=== PATIENT | male | born 1955 | race Native Hawaiian/Other Pacific Islander ===

== ENCOUNTER 2018-10-03 10:24 | Outpatient (CLI) | payer OTHER | END 2018-10-03 23:26 | disposition home or self-care (01) | LOC: LABW 10:24 | DX: Z51.81 Encounter for therapeutic drug level monitoring (principal) | CPT/HCPCS: 36415; 80164 ==

== ENCOUNTER 2021-08-01 15:36 | Inpatient (IN) | payer OTHER ==
[~2021-08-01] VITALS: Ht 185.4 cm; Wt 87.6 kg
[2021-08-01 19:13] VITALS: BP 125/74; TEMP 98
[2021-08-01 20:33] VITALS: BP 131/54; TEMP 99
--- NOTE | 2021-08-02 00:28 | NUR ---
UPON ENTERING PT ROOM PATIENT IS SITTING UP IN HIGH FOWLERS QUIETLY ALONE IN HIS ROOM. PATIENT IS ALERT AND ORIENTED. SN ASSESSED PATIENT AND ADMINISTERED DAILY MEDICATIONS. SN ADMINISTERED PATIENTS EYE DROPS AROUND 0000. PATIENT TOLERATED WELL. PATIENT INFORMED AT THIS TIME THAT NURSE WOULD HAVE TO SWAB ANUS FOR A CRE SCREEN. PATIENT VERBALIZES UNDERSTANDING. PATIENT HAS NO SIGNS OR SYMPTOMS OF DISTRESS AT THIS TIME. WILL CONTINUE TO MONITOR.
[2021-08-02 08:00] VITALS: BP 113/71; TEMP 98.4
--- NOTE | 2021-08-02 15:32 | NUR ---
Left hip fracture and is on a Regualr diet plan and is 6'1" at 210.6 lbs. and is a 66YOM, valproric acid at 74.6 and no other labs, ZNSO4, Prozac, Synthroid, and ate 75% of 1 meal and set up helps and 2+ edema, IBW = 184 +/-10% (166 to 202 lbs.) and kcal needs x 25 for IBW = 2100, x 30 = 2500, x 35 = 3000, x 40 = 3345 kcal/day, protein needs x 1.3 to 1.5 = 109 to 125 grams per day and RD available as needed. BMI at 27.78 and is overweight and is 115% of IBW and RD available as needed. No other labs in EMR> RD Recommendations: 1-Monitor labs 2-PT to work with the patient 3-OT to work with the patient 4-Make sure hydrated 5-May want to add Low Sodium to the diet order and if won't follow have 6-sign a dietayr refusal form 7-Add Vitamin C 500 mg BID 8-Add Protein 30 ml/cc TID 9-Add MVI
--- NOTE | 2021-08-02 16:11 | NUR ---
08/01/21 at 10:09 AM phone call with "Ned" at [facility] regarding insurance eligibility and benefits. Call reference # [phone] [id number]. Mr. Ascencio is covered by a [facility] Medicare PPO plan. [facility] is out of network for this plan. Per Ned, the out of network benefits for his plan pay days 1-20 at 100% and then days 21-100 have a $178 copay. The authorizations for this plan are managed by [facility]. The direct phone number to [facility] authorization is . Authorization number received for this swingbed admission is [id number]. Was transferred to Shauan the specialist from [facility] to update the first date of service to 08/01/21. First review date is 08/03/21. Also spoke to Karrie Silvestre, outside sales representative insurance for Mr. Ascencio, phone [email or web address] [phone]. Mr. Silvestre was contacted by Mr. Ascencio sister and she asked him to call and confirm coverage. Mr. Silvestre stated that Mr. Ascencio was eligible for benefits and that his in and out of network benefits were all the same.
--- NOTE | 2021-08-02 18:38 | NUR ---
PATIENT ASKED TO BE ASSISTED TO BEDSIDE COMMODE THAT HE FELT LIKE HE NEEDED TO HAVE A BM. BELT KNIFE FEEDER ASSISTED PATIENT AND LEFT THE ROOM FOR PRIVACY. PATIENT ONLY REPORTED PASSING GAS, NO BM. PATIENT THEN ASSISTED TO SIT ON SIDE OF BED TO VISIT WITH SISTER.
[2021-08-02 20:27] VITALS: BP 112/67; TEMP 98.8
--- NOTE | 2021-08-03 04:09 | NUR ---
PATIENT IN BED RESTING UPON ARRIVAL. PATIENT IS ALERT AND ORIENTED. PATIENT HAS NO SIGNS OR SYMPTOMS OF DISTRESS AT THIS TIME. NURSE ADMINISTERED PM MEDICATIONS PATIENT TOLERATED WELL. AT 0000 NURSE ADMINISTERED EYE DROPS. PATIENT HAS NO COMPLAINTS AT THIS TIME. WILL CONTINUE TO MONITOR.
--- NOTE | 2021-08-03 18:50 | NUR ---
LATE ENTRY- PATIENT HAS BEEN DOING WELL THROUGHOUT THE DAY PARTICIPATING WITH PHYSICAL THERAPY. PATIENT IS ABLE TO AMBULATE WITH WALKER TO THE BEDSIDE CHAIR. PATIENT IS STILL UNSTEADY WHILE AMBULATING NOT BEARING WEIGHT COMPLETELY REQUIRING MODERATE ASSISTANCE WHEN GETTING UP FROM THE BEDSIDE CHAIR. PATIENT GRIMACES HE ATTEMPTS TO WALK FROM THE CHAIR TO HIS BED.
[2021-08-03 20:00] VITALS: BP 112/53; TEMP 98.6
--- NOTE | 2021-08-03 22:05 | NUR ---
PT AWAKE LAYING IN BED WITH NO ACUTE DISTRESS NOTED, DENIES ANY NEEDS OR PAIN AT THIS TIME. GAVE NIGHTLY PO MEDICATIONS PT HELD DRINK CUP AND TOOK MEDICATION WHOLE WITH NO PROBLEMS. REPOSITIONED PT'S HEAD AND FEET IN BED WHEN OFFERED TO TURN PT HE DOES NOT WANT TO BE TURNED. WILL MONITOR, RAILS UP, BED IN LOW POSITION, CALL LIGHT IN REACH, ENCOURAGED TO CALL NEEDED. URINAL WITHIN PT'S REACH.
--- NOTE | 2021-08-04 00:08 | NUR ---
PT AWAKE SITTING UP IN BED WITH NO S/S OF ACUTE DISTRESS NOTED, RESP RATE NONLABORED, URINAL WITHIN PT'S REACH, DENIES ANY NEEDS AT THIS TIME, WILL MONITOR, RAILS UP, BED IN LOW POSITION, CALL LIGHT IN REACH, ENCOURAGED TO CALL NEEDED.
--- NOTE | 2021-08-04 00:35 | NUR ---
PT REMAINS AWAKE LAYING IN BED WITH HOB ELEVATED, DENIES ANY PROBLEMS OR NEEDS AT THIS TIME, STATES THAT PAIN TO L HIP IS ALMOST GONE SINCE ADX OF PRN MEDICATION. NO S/S OF DISTRESS NOTED, WILL MONITOR, RAILS UP, BED IN LOW POSITION, ENCOURAGED TO CALL NEEDED.
--- NOTE | 2021-08-04 00:36 | NUR ---
PREVIOUS NOTE AT 0035 CHARTED AT WRONG TIME. CORRECT TIME SHOULD BE 0356 ON 08/04/2021.
--- NOTE | 2021-08-04 03:25 | NUR ---
CALL LIGHT ANSWERED PT AWAKE LAYING IN BED. C/O PAIN TO HIS L LEG THAT IS A "5" ON SCALE STATES PAIN HURTS THEN EASES OFF HURTS THEN EASES OFF. GAVE NORCO 5/325MG PO PRN PER REQUEST PT HELD DRINK CUP AND TOOK MEDICATION WHOLE. OFFERED TO REPOSITION PT IN BED BUT PT STATES HE DOES NOT WANT TO BE REPOSITIONED, ENCOURAGED PT TO REPOSITION IN BED OR CALL FOR HELP TO BE REPOSITIONED. URINAL WITHIN PT'S REACH. WILL MONITOR, RAILS UP, BED IN LOW POSITION, ENCOURAGED TO CALL NEEDED, PT ACKNOWLEDGES UNDERSTANDING.
--- NOTE | 2021-08-04 06:15 | NUR ---
PT RESTING IN BED WITH EYES CLOSED, NO S/S OF PAIN OR DISTRESS NOTED, AROUSES TO HYDRAULIC RIVETER TOUCHING HIM AND DENIES ANY NEEDS. MORNING EYE DROPS APPLIED PER ORDER, WILL MONITOR, RAILS UP, BED IN LOW POSITION, CALL LIGHT IN REACH.
[2021-08-04 08:00] VITALS: BP 116/67; TEMP 98.2
[2021-08-04 20:00] VITALS: BP 107/64; TEMP 99.4
--- NOTE | 2021-08-04 20:05 | NUR ---
PT AWAKE, ALERT, AND ORIENTED SITTING UP IN BED WITH NO S/S OF ACUTE DISTRESS NOTED, DENIES ANY NEEDS OR PAIN AT THIS TIME, RESP RATE NONLABORED, ON ROOM AIR, SKIN WARM AND DRY, RADIAL AND PEDAL PULSES INTACT, DRESSING DRY AND INTACT TO INCISION SITE ON L HIP. ENCOURAGED TO CALL NEEDED, RAILS UP, BED IN LOW POSITION, CALL LIGHT AND URINAL WITHIN REACH.
--- NOTE | 2021-08-04 21:18 | NUR ---
PT AWAKE WITH NO S/S OF DISTRESS NOTED, GAVE NIGHTLY MEDICATIONS PO WHOLE NOTE PT HELD MED CUP AND HELD DRINK PER SELF NO S/S OF SWALLOWING PROBLEMS NOTED. C/O PAIN TO L HIP AND LEG THAT HE RATES A "6" ON SCALE STATES IT HURTS THEN DON'T HURT THEN HURTS AGAIN. GAVE NORCO 5/325MG PO PRN FOR PAIN. OFFERED TO ASSIST PT TO REPOSITION IN BED BUT PT STATES HE IS OKAY, WILL MONITOR, RAILS UP, BED IN LOW POSITION.
--- NOTE | 2021-08-04 22:00 | NUR ---
PT AWAKE WITH NO S/S OF DISTRESS NOTED, STATES HIS L HIP PAIN IS ALMOST GONE SINCE HE GOT PRN PAIN MEDICATION. DENIES ANY NEEDS AT THIS TIME, WILL MONITOR CLOSELY, RAILS UP, BED IN LOW POSITION, URINAL AND CALL LIGHT IN REACH, ENCOURAGED TO CALL NEEDED.
--- NOTE | 2021-08-05 00:10 | NUR ---
PT RESTING IN POSITION OF COMFORT WITH EYES CLOSED, NO S/S OF PAIN OR DISTRESS NOTED, WILL MONITOR, RAILS UP, BED IN LOW POSITION, CALL LIGHT AND URINAL WITH IN PT'S REACH.
--- NOTE | 2021-08-05 02:10 | NUR ---
RESTING IN BED WITH EYES CLOSED IN POSITION OF COMFORT WITH NO S/S OF PAIN OR DISTRESS NOTED, RESP RATE NONLABORED, ON ROOM AIR, WILL MONITOR, RAILS UP, BED IN LOW POSITION, CALL LIGHT IN REACH.
[2021-08-05 08:00] VITALS: BP 128/66; TEMP 98.5
--- NOTE | 2021-08-05 10:00 | NUR ---
PATIENT SITTING IN RECLINER WITH OT AT BEDSIDE. NAD NOTED. CLEAR LUNG SOUNDS NOTED. BOWEL SOUNDS NOTED IN ALL 4 QUADRANTS.
--- NOTE | 2021-08-05 10:00 | NUR ---
PATIENT SISTER INFORMED NURSE THAT SHE CANCELED FOLLOW UP APPOINTMENT BECAUSE HE WOULD NOT BE ABLE TO GET THERE WITH OUT HELP. NURSE INFORMED THEM THAT FOLLOW UP APPOINTMENT NEEDED TO BE KEPT. UR NOTIFIED FOR ASSISTANCE WITH TRANSPORT.
--- NOTE | 2021-08-05 11:00 | NUR ---
IDT MEETING HELD AND DISCUSSED NEED FOR TRANSPORT TO APPOINTMENT. APPOINTMENT IS SUNDAY AT 10:30
--- NOTE | 2021-08-05 11:30 | NUR ---
IDT MEETING HELD AT THIS TIME. PATIENT CONCERNS ADDRESSED AT THIS TIME.
--- NOTE | 2021-08-05 12:30 | NUR ---
NOTIFIED UR THAT SISTER CALLED AND INFORMED THAT THERAPY INSTRUCTED THAT TRANSPORT WOULD BE REQUIRED AND THAT SHE COULD NOT DO IT HERSELF. UR NOTIFIED AT THIS TIME.
--- NOTE | 2021-08-05 14:00 | NUR ---
UR NOTIFIED THAT TRANSPORT STILL NEEDS TO BE SET UP.
[2021-08-05 19:58] VITALS: BP 115/66; TEMP 98.3
[2021-08-06 08:00] VITALS: BP 107/62; TEMP 98
[2021-08-06 20:23] VITALS: BP 109/58; TEMP 98.9
--- NOTE | 2021-08-07 06:22 | NUR ---
PT HAS BEEN RESTING DURING THIS SHIFT. PT IS [place]. PT HAS REMOVED HEARING AIDS AND WERE PLACED AT BEDSIDE TABLE. PT IS USING URINAL. ASSISTANCE IS BEING GIVEN. CALL LIGHT IN EASY REACH.
[2021-08-07 08:00] VITALS: BP 122/66; TEMP 98.7
--- NOTE | 2021-08-07 09:41 | NUR ---
DR HOGUE NOTIFIED OF RED AREAS TO GROIN AND SCROTUM. NEW ORDERS GIVEN FOR NYSTATIN.
[2021-08-07 19:52] VITALS: BP 111/66; TEMP 98.7
--- NOTE | 2021-08-07 20:00 | NUR ---
ROUNDS MADE ASSESSMENT COMPLETED. PT WITH NO COMPLAINTS. PT IS WATCHING TV. USES URINAL. BEDSIDE TABLE IN EASY REACH. INSTURCTED PT TO CALL FOR ASSITANCE. PT VOICED UNDERSTANDING.
[2021-08-08 08:00] VITALS: BP 119/61; TEMP 97.8
--- NOTE | 2021-08-08 08:06 | NUR ---
Certified Welding Inspector spoke with patients sister Sam Berg and she said that she could take him to his follow up appointment. She said that therapy said they could help her get him in the car. Certified Welding Inspector called Dr. Mari's office and spoke with Josselin and let her know that patient would be at his appointment this moring and that sister would be bring him. Certified Welding Inspector also asked if there would be someone to help her get him out of the car and she said that was not a problem. Nursing notified that sister would be here to pick him up between 0900 and 0915.
--- NOTE | 2021-08-08 12:04 | NUR ---
PT ALERT AND ORIENTED. BREAKFAST SERVED EARLIER, PT HAD A DOCTORS APPOINTMENT IN [place] AND DAUGHTER WILL BE TAKING PT TO HIS APPOINTMENT. DENIES ANY PAIN/DISCOMFORT. AM MEDS ADMINISTERED BEFORE PT LEFT FOR APPOINTMENT AND PT TOLERATED WELL WITH NO DIFFICULTY SWALLOWING. ASSISTED PT WITH PUTTING ON PERSONAL CLOTHES AND PT LEFT FACILITY AT 0930.
--- NOTE | 2021-08-08 13:45 | NUR ---
PT R/T FROM DOCTOR'S APPOINTMENT AT 1340. JUAN CARLOS REMOVED BY SURGEON TO LEFT FEMORAL AREA. PT DENIES ANY PAIN/DISCOMFORT. ALERT AND ORIENTED. NAD NOTED. CONTINUE TO MONITOR.
[2021-08-08 20:11] VITALS: BP 128/68; TEMP 98.6
--- NOTE | 2021-08-08 21:20 | NUR ---
PATIENT GIVEN PO NIGHT TIME MEDS SCHEDULED AND HE TOLERATED THEM WELL. PATIENT DENIES ANY COMPLAINTS OR REQUESTS AT THIS TIME. CALL LIGHT WITHIN REACH. WILL CONTINUE TO MONITOR.
--- NOTE | 2021-08-09 03:45 | NUR ---
PATIENT RESTING QUIETLY WITH HIS EYES CLOSED, NO ACUTE DISTRESS NOTED AT THIS TIME. CALL LIGHT WITHIN MOMS REACH. WILL CONTINUE TO MONITOR.
[2021-08-09 08:00] VITALS: BP 106/72; TEMP 98.1
--- NOTE | 2021-08-09 16:06 | NUR ---
1100 PATIENT ASSISTED TO BSC BY STAFF. PATIENT UNSTEADY AND SLOW GAIT NOTED. ENCOURAGED PATIENT TO USE WALKER WHEN AMBULATING. CALL LIGHT IN REACH. WILL MONITOR.
--- NOTE | 2021-08-09 19:45 | NUR ---
PATIENT SITTING UP IN RECLINER AND ASSISTED BACK TO BED WITH ONE PERSON ASSIST. PATIENT DENIES ANY COMPLAINTS AT THIS TIME. CALL LIGHT WITHIN REACH. WILL CONTINUE TO MONITOR.
[2021-08-09 20:00] VITALS: BP 117/74; TEMP 98.6
[2021-08-10 08:00] VITALS: BP 97/62; TEMP 98.5
[2021-08-10 20:13] VITALS: BP 114/72; BP 159/71; TEMP 98.7; TEMP 98.8
[2021-08-11 08:00] VITALS: BP 105/65; TEMP 98.3
--- NOTE | 2021-08-11 18:30 | NUR ---
0900 UPON ENTERING PATIENT'S ROOM, PATIENT WAS IN LOW FOWLERS POSITION RESTING QUIETLY WITH EYES CLOSED. PATIENT RESPONDED EASILY TO VERBAL AND STIMULI. AM MEDICATIONS ADMINISTERED AND AM ASSESSMENT COMPLETED. PATIENT DENIED PAIN AND ANY NEEDS OR C/O AT THIS TIME. PATIENT INSTRUCTED TO CALL FOR ANY ASSISTANCE OR NEEDS, CALL LIGHT AND BEDSIDE TABLE WITH PERSONAL BELONGINGS WITHIN REACH. PATIENT ALERT & ORIENTED AND ABLE TO MAKE NEEDS KNOWN. INSTRUCTED PATIENT TO CALL IF HE [place] [facility] [place] UNDERSTANDING. DURING AM SHIFT, PATIENT [place] [facility] [place]ANCE X1 STAFF MEMBER WITH MINIMAL ASSIST WITH USE OF 4 PRONG WALKER. STAFF OFFERED AND PROVIDED PATIENT SNACKS, PT WAS PLEASANT AND COOPERATIVE WITH STAFF. PATIENT AMBULATED IN HALLWAY WITH USE OF 4 PRONG WALKER, GAIT WAS STEADY AND SLOW. PATIENT'S SISTER VISITED WITH PATIENT COOPERATIVE WITH STAFF. PATIENT AMBULATED IN [place]
[2021-08-11 20:10] VITALS: BP 112/66; TEMP 98.6
--- NOTE | 2021-08-12 07:41 | NUR ---
I went by the see the resident yesterday and he was sound to sleep and I did not wake him. He is on a Regular diet plan and RD available as needed.
[2021-08-12 08:00] VITALS: BP 121/65; TEMP 98.3
--- NOTE | 2021-08-12 15:42 | NUR ---
0735 ASSESSMENT COMPLETE. PATIENT LAYING IN LOW FOWERLS POSITION WITH EYES CLOSED, RESPIRATIONS EVEN AND UNLABORED, AWAKENS TO VERBAL STIMULI. PATIENT STATES HE HAS SOME SORENESS TO HIS LEG. PATIENT CONTINUES TO HAVE INCONTINENCE EPISODES. HE REQUIRES ASSISTANCCE STANDING UP WELL WITH AMBULATION. PATINET IS UNABLE TO BATH WITHOUT ASSISTANCE. THERAPY CONTINUES TO WORK WITH PATIENT FOR STRENGTHENING AND RECONDITIONING. PATIENT IS HARD OF HEARING. HIS SISTER STATES THE LEFT ONE IS GETTING FIXED. PATINET IS ORIENTATED TO PERSON, PLACE, SITUATION. PATIENT HAS DIMINSHED BUT CLEAR BREATH SOUNDS BILATERALLY. PATIENT ABDOMEN IS SOFT, NON TENDER, NON DISTENDED. HE HAS ACTIVE BOWELSOUNDS NOTED TO ALL 4 QUADDRANTS. SURGICAL SITE APPEARSTO BE HEALING WELL. HIS PERINEAL AREA HAS SOME REDNESS AND HAS CURRENT ORDER FOR NYSTATIN POWDER. PEDAL PULSES ARE INTACT. CALL LIGHT AND BEDSIDE TABLE ARE IN REACH.
--- NOTE | 2021-08-12 15:56 | NUR ---
1000PAIN REASSESSED- [facility] AND RATES PAIN NOW BEING A 3 ON A 1-10 SCALE. CALL LIGHT IN REACH, WILL MONITOR.
[2021-08-12 20:00] VITALS: BP 132/60; TEMP 98.2
--- NOTE | 2021-08-13 00:06 | NUR ---
PT RESTING IN BED WITH EYES CLOSED AT THIS TIME. PRN PAIN MED GIVEN EARLIER FOR LLE PAIN WITH RELIEF NOTED. PT IN LOW DESOUZA'S POSITION AT THIS TIME. PT TAKEN HS MEDS WITHOUT DIFFICULTY. [place] GIVEN PER REQUEST DURING MED PASS. NO S/S OF DISTRESS AT THIS TIME. CALL LIGHT IN EASY REACH.
[2021-08-13 08:00] VITALS: BP 150/86; TEMP 97.6
--- NOTE | 2021-08-13 16:02 | NUR ---
PATIENT COMPLAINS OF PAIN TO LOWER BACK AND TO LEG. RATES PAIN ON 1-10 SCALE. WILL CONTINUE TO MONITOR
[2021-08-13 20:05] VITALS: BP 117/68; TEMP 98.3
--- NOTE | 2021-08-13 23:49 | NUR ---
PT RESTING IN BED WITH EYES CLOSED AT THIS TIME. PRN PAIN MED GIVEN ABOUT AN HOUR AGO WITH GOOD RESULTS NOTED. NO FURTHER C/O VOICED. PT IS ABLE TO REPOSITION SELF IN BED. URINAL EMPTIED BY STAFF AND WASHED OUT AND RETURNED TO BEDSIDE IN PT'S REACH. NO S/S OF DISTRESS. CALL LIGHT IN REACH.
[2021-08-14 08:00] VITALS: BP 108/62; TEMP 98.1
--- NOTE | 2021-08-14 14:28 | NUR ---
0755 MORNING ASSESSMENT COMPLETE. PATIENT RESTING WTIH EYES CLOSED AND RESPIRATIONS EVEN UNLABORED. PATIENT AWAKENS EASILY TO VERBAL STIMULI. PATIENT IS ALERT AND ORIENTATED TO PERSON, PLACCE, LOCATION, ADN SITUATION. PATIENT IS REMINDED OF DATE, DAY, AND YEAR. PATIENT HAS DENTURES IN CUP ON BEDSIDE TABLE. PATIENT IS WEARING HIS RIGHT HEARING AID AT THIS TIME. PATIENT HAS CLEAR LUNG SOUNDS BILATERALLY. PATIENT ABDOMEN IS SOFT, NON TENDER, NON DISTENDED WITH ACTIVE BOWEL SOUNDS. SURGICAL SITE REMAINS INTACT WITH STERISTRIPS. PATIENT HAS SOME REDNESS TO PERINEAL AREA WITH NYSTATIN POWDER ORDERED ADN USED NEEDED FOR AREAS. ENCOURAGED TO KEEP CLEAN AND DRY BY USING BED SIDE COMMODE AND TO NOTIFY NURSE IF NEEDED ASSISTANCE WITH AMBULATING. CALL LIGHT AND BEDSIDE TABLE IN REACH.
--- NOTE | 2021-08-14 18:09 | NUR ---
PT HAS SLEPT INTERMITTENTLY MOST OF THIS SHIFT. NO OBJECTIVE OR SUBJECTIVE INDICATIONS OF PAIN. PT AWAKENS TO VERBAL STIMULI, DENIES NEEDS. STATES HE IS LOOKING FOWARD TO HIS HOME [place] AND POSSIBLE DISCHARGE ON SUNDAY. STERISTRIPS REMAIN INTACT TO L THIGH AT SURGICAL SITE.CALL LIGHT AND BEDSIDE TABLE IN REACH.
[2021-08-14 20:00] VITALS: BP 97/54; TEMP 98.5
--- NOTE | 2021-08-15 01:14 | NUR ---
PT RESTING IN BED WITH EYES CLOSED AT THIS TIME WITH NO S/S OF DISTRESS. PT NOTED TO HAVE INCONTINENT EPISODE EARLIER WITH [employer]ARE PROVIDED AND MEDICATED POWDER USED TO ABDIFATAH AREA. PT ALSO REQUESTED PRN PAIN MED FOR LEFT HIP PAIN. PRN NORCO GIVEN WITH RELIEF NOTED. NO FURTHER C/O VOICED AT THIS TIME. CALL LIGHT IN EASY REACH.
[2021-08-15 08:00] VITALS: BP 112/56; TEMP 97.6
--- NOTE | 2021-08-15 14:45 | NUR ---
PATIENT GOING HOME FOR HOME EVALUATION. BROTHER JADA CAME TO PICK PATIENT UP. ER MANAGER ESCORTED PATIENT VIA WHEELCHAIR TO PERSONAL VEHICLE. INSTRUCTED BROTHER AND PATIENT ON RETURNING TO FACILITY. VERBAL UNDERSTANDING BY BOTH PARTIES. PATIENT TOOK GLASSES, DENTURES, HEARING AIDS AND CELL PHONE WITH HIM.
--- NOTE | 2021-08-15 16:23 | NUR ---
PATIENT RETURNED FROM HOME EVALUATION. HAND PAINT MIXER OBTAINED PATIENT VIA WHEELCHAIR FROM PERSONAL VEHICLE. PATIENT HAD HEARING AIDS, DENTURES, CELL PHONE ON PERSON. PATIENT BACK IN BED WAITING FOR SCHEDULED MEDS.
--- NOTE | 2021-08-15 17:34 | NUR ---
PATIENT HAS NO COMPLAINTS AT THIS TIME. HE WENT HOME FOR HOME EVALUATION TODAY AND ENJOYED HIS TIME OUT. HE HAS ATE MOST ALL OF HIS MEALS TODAY. ONLY HAD PAIN THIS MORNING AND PAIN MEDICATION WAS ADMINISTERED WITH AM MEDS. PATIENT HAD BM AFTER LUNCH. HAS SAT IN HIS CHAIR FOR SEVERAL HOURS AND HAS RESTED IN THE BED SOME. HAS BEEN GETTING BETTER ABOUT MOVING AROUND.
[2021-08-15] MEDS ORDERED: VITAMIN D125 MCG PO (19:26)
[2021-08-15] MEDS ORDERED: DIVA500T2 PO (19:27)
[2021-08-15] MEDS ORDERED: FLUOXETINE20 MG PO (19:27)
[2021-08-15] MEDS ORDERED: HEMATINIC PL PO (19:28)
[2021-08-15] MEDS ORDERED: LEVO0.0723 PO (19:29)
[2021-08-15] MEDS ORDERED: OLANZAPINE5 MG PO (19:30)
[2021-08-15] MEDS ORDERED: [UNRECOGNIZED DRUG - OTHER] PO (19:31)
[2021-08-15] MEDS ORDERED: PANTOPRAZOLE 40MG TA PO (19:31)
[2021-08-15] MEDS ORDERED: ZINC220 M1 PO (19:32)
[2021-08-15 19:38] VITALS: BP 115/65; TEMP 98.4
--- NOTE | 2021-08-15 20:43 | NUR ---
PM MEDS GIVEN TO PT AT THIS TIME. PT. TOLERATED WELL. PT WAS ALMOST ASLEEP UPON ENTERING THE ROOM. NO S/S OF ACUTE DISTRESS EXHIBITED BY PT AT THIS TIME.
--- NOTE | 2021-08-16 00:09 | NUR ---
NORCO 5/325 MG GIVEN TO PT AT THIS TIME DUE TO HIP PAIN. WILL CONTINUE TO MONITOR.
--- NOTE | 2021-08-16 02:50 | NUR ---
PT. RESTING IN BED WITH EYES CLOSED AND NO S/S OF ACUTE DISTRESS EXHIBITED BY PT AT THIS TIME. PT. LAYING SUPINE WITH SIDE RAILS UP TIMES TWO WITH BED IN LOWEST POSITION WITH CALL LIGHT WITHIN REACH. RESPIRATIONS EVEN AND NON-LABORED.
--- NOTE | 2021-08-16 06:24 | NUR ---
PT. RESTING QUIETLY WITH EYES CLOSED AT THIS TIME. NO S/S OF ACUTE DISTRESS NOTED OR EXHIBITED BY PT. PT. LAYING SUPINE IN BED WITH SIDE RAILS UP TIMES TWO WITH BED IN LOWEST POSITION WITH CALL LIGHT WITHIN EASY, ACCESIBLE REACH. PT HAS NOT COMPLAINED PAIN SINCE NORCO GIVEN EARLIER IN SHIFT.
--- NOTE | 2021-08-16 07:35 | NUR ---
PATIENT IN LOW FOWLERS POSITION RESTING QUIETLY WITH EYES CLOSED BUT AROUSES EASILY TO VERBAL AND TACTICAL STIMULI, HEARING AIDS NOTED IN, EMPTY URINAL AT BEDSIDE, CALL LIGHT AND BEDSIDE TABLE WITH PERSONAL BELONGINGS WITHIN REACH. PATIENT DENIES PAIN. PATIENT INSTRUCTED TO NOTIFY STAFF IF HE HAS PAIN OR NEEDS, PT V/O UNDERSTANDING. AM ASSESSMENT COMPLETED AT THIS TIME AND POST SURGICAL WOUND ASSESSED TO LEFT HIP WITH NO DRAINAGE, EDEMA OR REDNESS NOTED TO SITE. NAD NOTED WITH PATIENT AT THIS TIME. OFFERED TO ASSIST PATIENT TO BSC, PT REFUSED AT THIS TIME. PATIENT INSTRUCTED TO CALL STAFF FOR ASSISTANCE TO BSC, PT V/O UNDERSTANDING.
[2021-08-16 08:00] VITALS: BP 108/68; TEMP 98
--- NOTE | 2021-08-16 11:35 | NUR ---
Patient request the services of [facility] home health upon discharge. Patinets information sent to [facility]. They were notified that he would discharge home on Sunday08/19/21.
--- NOTE | 2021-08-16 11:42 | NUR ---
NOMNC received from insurance [employer] with last covered day being 08/18/21. Patient is already planning to discharge home on 08/19/21. Reviewed NOMNC with patient after he put hearing aid in his right ear and then put his glasses on. Notified that appeal could be made if so desired, and opportunity for questions given. Patient verbalized understanding of education provided related to NOMNC. Patient stated he did not want to appeal and had no questions. Patient signed NOMNC. NOMNC then faxed to renal case manager Eileen Sam at , then placed on patient's chart.
--- NOTE | 2021-08-16 16:50 | NUR ---
PATIENT REMAINS IN RECLINER AND DENIES ANY PAIN, NEEDS OR C/O AT THIS TIME. PROVIDED PATIENT HIS DINNER TRAY AND SET SAME UP FOR PATIENT. NAD NOTED WITH PATIENT AT THIS TIME.
--- NOTE | 2021-08-16 17:55 | NUR ---
ASSISTED PATIENT WITH TRANSFERRING TO BED FROM RECLINER WITH USE OF 4 PRONG WALKER. PATIENT TOLERATED WELL. NAD NOTED WITH PATIENT. PATIENT DENIES ANY PAIN, NEEDS OR C/O AT THIS TIME.
--- NOTE | 2021-08-16 18:51 | NUR ---
DURING AM SHIFT, PATIENT TOOK PO MEDICATIONS WITHOUT DIFFICULTY, MEALS WERE SET UP FOR PATIENT, AND AN EXTENSIVE BATH WAS GIVEN TO PATIENT. PATIENT AMBULATED TO [facility] WITH MINIMAL ASSISTANCE OF STAFF MEMBER X1 AND USE OF 4 PRONG WALKER. PATIENT HAS DENIED PAIN DURING AM SHIFT. INSTRUCTED PATIENT TO NOTIFY STAFF OF ANY CHANGES AND RE-EDUCATED PATIENT ON USE OF CALL LIGHT. BEDSIDE TABLE WITH PERSONAL BELONGINGS AND CALL LIGHT REMAINED BY PATIENTS SIDE DURING SHIFT. THERAPY ASSISTED PATIENT TO RECLINER AND NURSING STAFF ASSISTED PATIENT WITH TRANSFERRING TO BED WITH 1 STAFF MEMBER MINIMAL ASSIST. PROVIDED PATIENT WITH SNACKS DURING SHIFT. PATIENT HAS BEEN COOPERATIVE WITH STAFF AND THERAPY.
[2021-08-16 19:51] VITALS: BP 112/56; TEMP 98.4
--- NOTE | 2021-08-16 21:26 | NUR ---
PM MEDS GIVEN TO PT AT THIS TIME. PT TOLERATED WELL. PT ABLE TO GRAB MEDICINE AND WATER AND SWALLOW WITH NO DIFFUCULTY. PT. ELEVATES THE HEAD OF THE BED ON HIS OWN TO TAKE MEDICINES AND IS INDEPENDENT WITH PIVOTING AND TRANSFERRING IN THE BED. PT DENIES ANY PAIN AT THIS TIME AND HAS NO ACUTE DISTRESS AT THIS TIME. PT IN A LOW FOWLERS POSITION WITH SIDE RAILS UP TIMES THREE WITH BED IN LOWEST POSITION WITH CALL LIGHT WITHIN REACH.
--- NOTE | 2021-08-17 04:46 | NUR ---
PT. RESTING QUIETLY AT THIS TIME WITH NO SIGNS OF ACUTE DISTRESS WHILE RESTING SUPINE IN BED. BREATHING EVEN AND NON-LABORED AND PT PROGRESSES EACH DAY WHILE IN THE SWING BED PROGRAM. PT LAYING IN A SUPINE POSITION WITH SIDE RAILS UP TIMES TWO WITH BED IN LOWEST POSITION WITH CALL LIGHT WITHIN EASY REACH.
[2021-08-17 08:00] VITALS: BP 113/62; TEMP 98.2
--- NOTE | 2021-08-17 10:21 | NUR ---
0725 ASSESSMENT COMPLETE. PATIENT LAYING IN BED IN LOW FOWLERS POSITION. PT AWAKENS TO VERBAL STIMULI. PT IS LOOKING FOWARD TO POTENTIALLY GOING HOME IN A FEW DAYS. PT HAS CLEAR LUNG SOUNDS, ABD IS SOFT, NON TENDER, NON DISTENDDED WITH ACTIVE BOWEL SOUNDS. PATIENT SURGICAL SITE IS HEALING WELL AND IS OPEN TO AIR. PT STATES THAT HE HAD A BM 08/16/21. NO PEDAL EDEMA. THERAPY TO CONTINUE TO WORK WITH PATIENT FOR STRENGTHEING. CALL LIGHT IN REACH ALONG WITH BEDDSIDE TABLE.
--- NOTE | 2021-08-17 10:31 | NUR ---
0920 PT COMPLAINS OF PAIN TO L HIP. RATES A 7 ON 1-10 SCALE. NORCO 5/325 GIVEN PER ORDER. WILL MONITOR FOR EFFECTIVENESS.
--- NOTE | 2021-08-17 10:32 | NUR ---
0950 PATEINT STATES PAIN HAS IMPROVED AND IS NOW TOLERABLE.
[2021-08-17 20:00] VITALS: BP 126/58; TEMP 98.7
--- NOTE | 2021-08-17 20:05 | NUR ---
PT AWAKE SITTING UPRIGHT IN BED WITH NO S/S OF PAIN OR DISTRESS NOTED, ALERT AND ORIENTED, DENIES ANY NEEDS AT THIS TIME, SKIN WARM AND DRY, RESP RATE NONLABORED, BS+, LUNGS CLEAR TO AUSCULTATION, RADIAL PULSES INTACT, WILL MONITOR, ENCOURAGED TO CALL NEEDED, RAILS UP, BED IN LOW POSITION, CALL LIGHT AND URINAL WITHIN PT'S REACH.
--- NOTE | 2021-08-17 20:54 | NUR ---
PT AWAKE WITH NO DISTRESS NOTED, DENIES ANY PAIN OR OTHER PROBLEMS, DENIES NEED FOR ANY PRN PAIN MEDICATION. GAVE NIGHTLY PO MEDICATIONS, RESEARCH PROGRAM INTERN PREPARED MEDICATION BUT PT HELD DRINK CUP AND MEDICATION CUP AND TOOK MEDS PER SELF. WILL MONITOR, RAILS UP, BED IN LOW POSITION, CALL LIGHT IN REACH, URINAL WITHIN PT'S REACH, ENCOURAGED TO CALL NEEDED.
--- NOTE | 2021-08-17 22:20 | NUR ---
PT AWAKE SITTING UP IN BED WITH NO S/S OF PAIN OR DISTRESS NOTED, DENIES ANY PROBLEMS AT THIS TIME, RESP RATE NONLABORED, URINAL WITH IN PT'S REACH, ENCOURAGED TO CALL NEEDED, RAILS UP, BED IN LOW POSITION, CALL LIGHT IN REACH.
--- NOTE | 2021-08-18 00:12 | NUR ---
CALL LIGHT ANSWERED PT ALERT AND ORIENTED SITTING UP IN BED WITH NO ACUTE DISTRESS NOTED. C/O CONSTANT PAIN TO L LEG THAT IS ABOUT A 4 OR 5 ON SCALE PER PT, GAVE NORCO 5/325MG PO PRN PER REQUEST, PT TOOK MEDICATION WITH NO PROBLEMS. WILL MONITOR CLOSELY, RAILS UP, BED IN LOW POSITION, CALL LIGHT IN REACH, ENCOURAGED TO CALL NEEDED.
--- NOTE | 2021-08-18 00:55 | NUR ---
RESTING IN BED WITH EYES CLOSED, NO S/S OF PAIN OR REACTIONS NOTED TO PRN PAIN MEDICATION. NO S/S OF DISTRESS NOTED, WILL MONITOR, RAILS UP, BED IN LOW POSITION, CALL LIGHT IN REACH.
--- NOTE | 2021-08-18 04:20 | NUR ---
RESTING IN POSITION OF COMFORT WITH EYES CLOSED, NO S/S OF PAIN OR DISTRESS NOTED, WILL MONITOR, RAILS UP, BED IN LOW POSITION, URINAL AND CALL LIGHT IN REACH.
--- NOTE | 2021-08-18 06:22 | NUR ---
PT FOUND RESTING IN BED WITH EYES CLOSED, NO S/S OF PAIN OR DISTRESS NOTED, LIGHT SNORING NOTED, RAILS UP, BED IN LOW POSITION, CALL LIGHT IN REACH.
[2021-08-18 08:00] VITALS: BP 104/62; TEMP 97.9
--- NOTE | 2021-08-18 11:36 | NUR ---
Resident is on a Regular diet plan and was asleep when I went by to see him and I did not wake him. RD available as needed.
--- NOTE | 2021-08-18 11:57 | NUR ---
0730 ASSESSMENT COMPLETE. PATIENT RESTING WITH EYES CLOSED, RESP EVEN AND UNLABORED. PT HAS LEFT EAR HEARING AID IN. PT HAS CLEAR LUNGS SOUNDS BILATERALLY. HE REPORTSA BOWEL MOVEMENT THIS MORNING. ACTIVE BOWEL SOUNDS TO ALL 4 QUADRANTS. HEALING SURGICAL SITE TO LEFT HIP ON TO AIR. PT CONTINUES TO PARTIPATE IN THERAPY AND TELLS THIS NURSE HE IS LOOKING FOWARD TO GOING HOME ON SUNDAY. PT REQUESTS HIS PAIN MEDICINE WTIH HIS MORNING MEDS. BREAKFAST TRAY ARRIVES DURING NURSE ASSESSMENT AND PATIENT IS VERBALLY PROMPTED ON SITTING ON SIDE OF BED AND TRAY SET UP BY THIS NURSE. CALL LIGHT IN REACH WITH BEDSIDE TABLE AT BEDSIDE. WILL MONITOR.
--- NOTE | 2021-08-18 12:05 | NUR ---
0900 NORCO 5/325 GIVEN TO PT WITH MORNING MEDS PER REQUEST. HESTATES HIS PAIN IS TO HIS LEFT HIP WITH A RATED PAIN SCALE OF 6 ON 1-10 SCALE. WILL MONITOR FOR EFFECTIVENESS.
--- NOTE | 2021-08-18 12:06 | NUR ---
0930 PATIENT STATES PAIN IS IMPROVED AND IS NOW RATED A 2 ON 1-10 SCALE.
--- NOTE | 2021-08-18 13:00 | NUR ---
PT SITTING UP IN CHAIR, TELLS NURSE HE IS HAVING SOME SORENESS TO LEFT HIP. NORCO 5/325MG GIVEN FOR COMPLAINTS OF PAIN. WILL MONITOR FOR EFFECTIVENESS
[2021-08-18 20:00] VITALS: BP 104/61; TEMP 97.9
--- NOTE | 2021-08-18 22:25 | NUR ---
PT IN BED RESTING QUITELY EYES CLOSED RESPIRATION EVEN AND UNLABORED. PT HAS COMPLICATION HEARING OUT LEFT EAR. PT HAS HEARING DEVIE TO ASSIST WITH HEARING. PT ALERT TO THE LIGHT BEING TURED ON. PT DENIES PAIN, ACCEPTED HS MEEDICATION WITOUT COMPLICATION. PT HAS SURGICAL WOUND TO LEFT HIP THAT IS HEALING WELL, NO S/SX OF INFECTION NOTED. PT REQUIRES MINIMAL ASSISTANCE WITH ADLS. PT USES URINAL AND BSC. NO ACUTE DISTRESS NOTED WILL CONTINUE TO MONITOR. CALL LIGHT WITHIN REACH.
[2021-08-19 08:00] VITALS: BP 124/68; TEMP 97.9
--- NOTE | 2021-08-19 15:30 | NUR ---
REVIEWED PATIENT'S DISCHARGE INSTRUCTIONS WITH PATIENT AND PATIENT'S SISTER INCLUDING INSTRUCTIONS ON TO RESUME HOME MEDICATIONS AND NORCO, BOTH V/O UNDERSTANDING. INSTRUCTED PATIENT'S SISTER TO CALL DR. PILAR MELENDEZ'S OFFICE ON SUNDAY, AUGUST 22, 2021, TO SCHEDULE AN APPOINTMENT DUE TO OFFICE CLOSED ON DAY OF DISCHARGE, PT'S SISTER V/O UNDERSTANDING. PATIENT AND PATIENT'S SISTER DENY ANY QUESTIONS OR C/O AT THIS TIME. PATIENT D/C'D FROM FACILITY AND TAKEN TO SISTER'S POV VIA WHEELCHAIR. PATIENT AMBULATED TO POV WITHOUT DIFFICULTY. NAD NOTED WITH PATIENT AT THIS TIME.
== END 2021-08-19 16:00 | disposition home or self-care (01) | DRG 560 ==
LOC: MED/SURG 15:36
PROVIDERS: ADMIT Internal Medicine Endocrinology, Diabetes & Metabolism; ATTEND Internal Medicine Endocrinology, Diabetes & Metabolism
DX: S72.002D Fracture of unspecified part of neck of left femur, subsequent encounter for closed fracture with routine healing (principal); J98.11 Atelectasis; Z91.81 History of falling; R50.82 Postprocedural fever; M62.81 Muscle weakness (generalized); R26.81 Unsteadiness on feet; Z74.1 Need for assistance with personal care; F31.9 Bipolar disorder, unspecified; H10.9 Unspecified conjunctivitis; E03.9 Hypothyroidism, unspecified; K21.9 Gastro-esophageal reflux disease without esophagitis; H91.90 Unspecified hearing loss, unspecified ear; Z90.49 Acquired absence of other specified parts of digestive tract
CPT/HCPCS: 87081; 94760; J1650